=== PATIENT | female | born 1975 | race African-American/Black ===

== ENCOUNTER 2020-05-07 21:10 | Emergency (ER) | payer OTHER ==
[~2020-05-07 21:10] MED LIST: Iopamidol 370 76% 100 ML VIAL ONE
[2020-05-07 22:01] LABS: #Eosinphils 0.1 thou/uL (0.0-0.7); #Monocytes 0.7 thou/uL (0.11-0.59); #Neutrophils 4.5 thou/uL (1.40-6.50); %Basophils 0.3 % (0.0-1.0); %Eosinophils 0.7 % (0.0-10.0); %Lymphocytes 27.6 % (21.0-51.0); %Monocytes 9.2 % (0.0-10.0); %Neutrophils 62.2 % (42.0-75.0); Hemoglobin 14.7 g/dL (12.0-16.0); Mean Corpuscular HGB CONC 31.8 g/dL (32.0-36.0); Mean Corpuscular Hemoglobin 27.4 pg (27.0-31.0); Mean Corpuscular Volume 86.1 fL (78.0-98.0); Mean Platelet Volume 7.5 fL (7.4-10.4); Platelet Count 288 thou/uL (130-400); RBC Distribution Width 13.9 % (11.5-14.5); Red Blood Cell (RBC) Count 5.36 mill/uL (4.20-5.40); White Blood Cell (WBC) Count 7.2 thou/uL (4.8-10.8)
[2020-05-07 22:14] LABS: ALT (SGPT) 18 U/L (8-55); AST (SGOT) 28 U/L (5-34); Albumin 4.3 g/dL (3.5-5.0); Alkaline Phosphatase 79 U/L (40-110); Anion Gap 16 mmol/L (10-20); BUN (Urea Nitrogen) 12 mg/dL (7.0-18.7); Bilirubin, Total 0.4 mg/dL (0.2-1.2); Calc. Creatinine Clearance 0 mL/min (70-130); Calcium 8.9 mg/dL (7.8-10.44); Carbon Dioxide 23 mmol/L (22-29); Chloride 102 mmol/L (98-107); Globulin 4.5 g/dL (2.4-3.5); Glucose 97 mg/dL (70-105); Potassium 3.9 mmol/L (3.5-5.1); Protein, Total 8.8 g/dL (6.0-8.3); Sodium 137 mmol/L (136-145)
[2020-05-07] MEDS ORDERED: Ondansetron PF 4 MG/2 ML Vial ONE (22:17)
[2020-05-07 22:45] LABS: BHCG - Serum Negative (NEGATIVE); Pregs Control Background? CLEAR/WHITE (CLR/WHITE); Pregs Control Bar Appear? YES (CONTROL BAR)
[2020-05-07] MEDS ORDERED: Azithromycin 250 MG TAB ONE (23:47)
[2020-05-07] MEDS ORDERED: Dexamethasone 10 MG/ML VIAL ONE (23:47)
--- NOTE | 2020-05-08 07:18 | CT ---
CT ANGIO OF CHEST: Date: 05/07/2020 This study was done initially but the timing of the bolus was off, yielding an indeterminate study. A fter discussing the options with the ER physician, it was decided that it was worth doing a second, b ut smaller injection of contrast with better timing. A total of 160 mL were given between the two dawson dies. The second exam is much better and shows good filling of the pulmonary arteries with no signs of pulm onary embolism at this time. There is no evidence of aortic dissection or aneurysm. There may be some subcarinal adenopathy. This is difficult to assess well, but there is at least some suspicion of ful lness here. None was seen elsewhere. There is no sign of pericardial effusion. Patchy infiltrates are seen throughout the lungs bilaterally, some ground-glass in nature. The left u pper and left lower lobes are most involved with some mild involvement of the mainly right middle and right lower lobes. The findings are consistent with COVID in this patient who has a known positive t est. There are no effusions. The visible portions of the upper abdomen showed no acute findings. IMPRESSION: 1. No evidence of pulmonary embolism. 2. Scattered patchy ground-glass infiltrates in both lobes, but no lobar consolidations. The finding s are in keeping with her positive COVID diagnosis. Findings called to Dr. Shields at 2330 hours on 05/07/2020. CODE CR. POS: HOME
== END 2020-05-08 00:02 | disposition home or self-care (01) ==
LOC: BURERS 21:10
DX: U07.1 COVID-19 (principal); J12.82 Pneumonia due to coronavirus disease 2019; K52.9 Noninfective gastroenteritis and colitis, unspecified; Z79.899 Other long term (current) drug therapy; I10 Essential (primary) hypertension; F17.210 Nicotine dependence, cigarettes, uncomplicated
CPT/HCPCS: 71275; 80053; 83605; 84484; 84703; 85025; 85379; 87040; 94760; 96374; 96375; J1100; J2405; Q9967

== ENCOUNTER 2025-04-19 14:17 | Emergency (ER) | payer OTHER ==
[2025-04-19] MEDS ORDERED: Ondansetron PF 4 MG/2 ML Vial ONE (14:43)
[2025-04-19] MEDS ORDERED: Ketorolac Tromethamine 30 MG (1 mL) VIAL ONE (14:43)
[2025-04-19 15:08] LABS: #Basophils 0.1 thou/uL (0.0-0.2); #Eosinophils 0.1 thou/uL (0.0-0.7); #Lymphocytes 2.0 thou/uL (1.20-3.40); #Monocytes 0.8 thou/uL (0.11-0.59); #Neutrophils 5.5 thou/uL (1.40-6.50); %Basophils 1.1 % (0.0-1.0); %Eosinophils 0.9 % (0.0-10.0); %Lymphocytes 23.4 % (21.0-51.0); %Monocytes 9.3 % (0.0-10.0); %Neutrophils 65.3 % (42.0-75.0); Hematocrit 40.1 % (36.0-47.0); Hemoglobin 12.8 g/dL (12.0-16.0); Mean Corpuscular Hemoglobin 28.2 pg (27.0-31.0); Mean Corpuscular Volume 88.5 fl (78.0-98.0); Platelet Count 249 10x3/uL (130-400); Red Blood Cell (RBC) Count 4.54 mill/uL (4.20-5.40); White Blood Cell (WBC) Count 8.4 10x3/uL (4.8-10.8)
[2025-04-19 15:23] LABS: ALT (SGPT) 8 U/L (Less than 34); AST (SGOT) 19 U/L (11-34); Albumin 3.8 g/dL (3.1-4.5); Alkaline Phosphatase 116 U/L (40-110); Anion Gap 15 mmol/L (10-20); BUN (Urea Nitrogen) 21 mg/dL (9.8-20.1); Bilirubin, Total 0.3 mg/dL (0.3-1.2); Calc. Creatinine Clearance 0 mL/min (70-130); Calcium 9.1 mg/dL (7.8-10.44); Carbon Dioxide 23 mmol/L (22-29); Chloride 108 mmol/L (98-107); Globulin 3.5 g/dL (2.4-3.5); Glucose 93 mg/dL (70-105); Potassium 4.3 mmol/L (3.5-5.1); Sodium 142 mmol/L (136-145)
== END 2025-04-19 16:05 | disposition home or self-care (01) ==
LOC: BURERS 14:17
DX: S39.012A Strain of muscle, fascia and tendon of lower back, initial encounter (principal); M51.379 Other intervertebral disc degeneration, lumbosacral region without mention of lumbar back pain or lower extremity pain; I10 Essential (primary) hypertension; F17.210 Nicotine dependence, cigarettes, uncomplicated; X58.XXXA Exposure to other specified factors, initial encounter
CPT/HCPCS: 72131; 80053; 85025; 96374; 96375; J1885; J2270; J2405